=== PATIENT | male | born 2000 | race African-American/Black ===

== ENCOUNTER 2022-02-24 20:00 | Emergency (ER) | payer OTHER ==
[2022-02-24 21:42] VITALS: BP 122/66; PULSE 49; RESP 14; TEMP 98.4; BMI 31.3
== END 2022-02-24 23:40 | disposition home or self-care (01) ==
LOC: FER 20:00
DX: S93.402A Sprain of unspecified ligament of left ankle, initial encounter (principal); W18.40XA Slipping, tripping and stumbling without falling, unspecified, initial encounter
CPT/HCPCS: 73610-TC-LT-FY; 73630-TC-LT; 99283-25

== ENCOUNTER 2022-08-28 00:50 | Emergency (ER) | payer OTHER ==
[2022-08-28 01:07] VITALS: BP 132/84; PULSE 78; RESP 16; TEMP 99.2; BMI 31.3
[2022-08-28] MEDS ORDERED: IBUPROFEN 600 MG TABLET (FP) PO ONE ×2 (02:05→02:10)
== END 2022-08-28 03:31 | disposition home or self-care (01) ==
LOC: FER 00:50
DX: M25.512 Pain in left shoulder (principal); R07.89 Other chest pain; R00.1 Bradycardia, unspecified
CPT/HCPCS: 71046-TC-FY; 93005; 99284-25